=== PATIENT | female | born 1975 | race Caucasian/White ===

== ENCOUNTER 2017-06-25 12:22 | Emergency (ER) | payer BC ==
[2017-06-25 12:43] VITALS: BP 146/99
[2017-06-25] MEDS ORDERED: diphenhydrAMINE 50 MG/ML SDV IVPUSH ONE (12:58)
[2017-06-25] MEDS ORDERED: Sodium Chloride 0.9% 10 ML Syringe FLUSH PRN (12:58)
[2017-06-25] MEDS ORDERED: Metoclopramide 10 MG/2 ML SDV IVPUSH ONE (12:58)
[2017-06-25] MEDS ORDERED: Lactated Ringers 1,000 ML IV ONE (12:59)
--- NOTE | 2017-06-25 13:32 | CT ---
Head CT Technique: Multiple axial sections through the brain were obtained. Intravenous contrast was not utilized. Comparison: Prior head CT exam dated 09/15/14. Findings: Ventricles along with basal cisterns and sulci over convexities are within normal limits for the patient's age. No abnormal parenchymal densities are seen. No evidence of intracranial hemorrhage. No midline shift or mass effect is seen. Bone window settings were reviewed which shows no acute calvarial abnormality. Visualized sinuses are clear. Impression: 1. Nothing acute is identified on noncontrast head CT exam. No significant change is seen from prior study. Diagnostic code #1
--- NOTE | 2017-06-25 13:33 | EDM.PDOC ---
ED HPI GENERAL MEDICAL PROBLEM - General Chief Complaint: Headache Stated Complaint: HEADACHE Time Seen by Provider: 06/25/17 13:23 Source of Information: Reports: Patient History Limitations: Reports: No Limitations - History of Present Illness INITIAL COMMENTS - FREE TEXT/NARRATIVE: 41-year-old female presents for evaluation treatment of a migraine headache. Patient reports that the headache started on Saturday. Reports that it is located behind her eyes and in the back of her head and near her neck. States that she has tried oxycodone, Advil and Tylenol without any symptom relief. She saw the chiropractor yesterday but did not get any relief from seen in the chiropractor. Patient reports that the headache continues to worsen. Reports associated nausea and one episode of vomiting. No fevers, chills, earaches, sinus pain or cough. Report status sore throat 2 days ago. No recent trauma. Patient reports that she has a history of migraine headaches and this always attributed these to her allergies. Treatments SHAKER OUT: Reports: Other (see below) Other Treatments SHAKER OUT: Ibuprofen 800 mg at 0730 Headache Pain Score (Numeric/FACES): 10 - Related Data Allergies Allergy/AdvReac Type Severity Reaction Status Date / Time Penicillins Allergy Rash Verified 06/25/17 12:37 Home Meds: Home Meds . [No Known Home Meds] 06/25/17 [History] oxyCODONE HCl/Acetaminophen [oxyCODONE-Acetaminophen 5-325] 1 tab PO DAILY PRN 06/25/17 [History] Past Medical History Neurological History: Reports: Headaches, Chronic Social & Family History - Tobacco Use Smoking Status *Q: Never Smoker - Alcohol Use Days Per Week of Alcohol Use: 0 - Recreational Drug Use Recreational Drug Use: No ED ROS GENERAL - Review of Systems Review Of Systems: See Below Constitutional: Denies: Fever GI/Abdominal: Reports: Nausea, Vomiting Musculoskeletal: Reports: Neck Pain Neurological: Reports: Headache - Physical Exam Exam: See Below Exam Limited By: No Limitations General Appearance: Alert, WD/WN, No Apparent Distress Eye Exam: Bilateral Eye: PERRL Ears: Normal External Exam, Normal Canal, Hearing Grossly Normal, Normal TMs Nose: Normal Inspection Throat/Mouth: Normal Inspection, Normal Lips, Normal Voice, No Airway Compromise Head Exam: Atraumatic, Normocephalic Neck: Normal Inspection, Full Range of Motion Respiratory/Chest: No Respiratory Distress, Lungs Clear, Normal Breath Sounds Cardiovascular: Normal Peripheral Pulses, Regular Rate, Rhythm, No Murmur GI/Abdominal: Normal Bowel Sounds, Soft, Non-Tender Neuro Exam (Abbreviated): Alert, Oriented, Normal Cognition Psychiatric: Normal Affect, Normal Mood Skin Exam: Warm, Dry, Normal Color Course - Vital Signs Last Recorded V/S: Last Vital Signs Temp 36.6 C 06/25/17 12:38 Pulse 76 06/25/17 12:38 Resp 18 06/25/17 12:38 BP 146/99 H 06/25/17 12:38 Pulse Ox 99 06/25/17 12:38 - Orders/Labs/Meds Orders: Active Orders 24 hr Category Date Time Status Peripheral IV Care [RC] . DIRECTED Care 06/25/17 12:59 Active Sodium Chloride 0.9% [Saline Flush] Med 06/25/17 12:58 Active 10 ml FLUSH ASDIRECTED PRN Peripheral IV Insertion Adult [OM.PC] Routine Oth 06/25/17 12:58 Ordered Medication Orders Sodium Chloride (Saline Flush) 10 ml FLUSH ASDIRECTED PRN PRN Reason: Keep Vein Open Last Admin: 06/25/17 13:19 Dose: 10 ml Labs: Laboratory Tests 06/25/17 06/25/17 Range/Units 13:05 13:05 WBC 9.53 (3.98-10.04) K/mm3 RBC 5.33 H (3.98-5.22) M/mm3 Hgb 15.7 (11.2-15.7) gm/L Hct 46.4 H (34.1-44.9) % MCV 87.1 (79.4-94.8) fl MCH 29.5 (25.6-32.2) pg MCHC 33.8 (32.2-35.5) g/dl RDW Std Deviation 41.0 (36.4-46.3) fL Plt Count 271 (182-369) K/mm3 MPV 9.2 L (9.4-12.3) fl Neut % (Auto) 78.8 H (34.0-71.1) % Lymph % (Auto) 15.9 L (19.3-51.7) % [place] % (Auto) 4.5 L (4.7-12.5) % Eos % (Auto) 0.4 L (0.7-5.8) Baso % (Auto) 0.2 (0.1-1.2) % Neut # (Auto) 7.50 H (1.56-6.13) K/mm3 Lymph # (Auto) 1.52 (1.18-3.74) K/mm3 [place] # (Auto) 0.43 H (0.24-0.36) K/mm3 Eos # (Auto) 0.04 (0.04-0.36) K/mm3 Baso # (Auto) 0.02 (0.01-0.08) K/mm3 Sodium 140 (136-145) mEq/L Potassium 3.8 (3.5-5.1) mEq/L Chloride 101 (98-107) mEq/L Carbon Dioxide 21 (21-32) mEq/L Anion Gap 21.8 H (5-15) BUN 15 (7-18) mg/dL Creatinine 0.8 (0.55-1.02) mg/dL Est Cr Clr Drug Dosing 76.55 mL/min Estimated GFR (MDRD) > 60 (>60) mL/min BUN/Creatinine Ratio 18.8 H (14-18) Glucose 75 (74-106) mg/dL Calcium 9.4 (8.5-10.1) mg/dL Total Bilirubin 0.8 (0.2-1.0) mg/dL AST 18 (15-37) U/L ALT 23 (14-59) U/L Alkaline Phosphatase 67 (46-116) U/L Total Protein 8.2 (6.4-8.2) g/dl Albumin 4.1 (3.4-5.0) g/dl Globulin 4.1 gm/dL Albumin/Globulin Ratio 1.0 (1-2) Meds: Medications Generic Name Dose Route Start Last Admin Trade Name Freq PRN Reason Stop Dose Admin Sodium Chloride 10 ml 06/25/17 12:58 06/25/17 13:19 Saline Flush FLUSH 10 ml ASDIRECTED PRN Administration Keep Vein Open Discontinued Medications Generic Name Dose Route Start Last Admin Trade Name Freq PRN Reason Stop Dose Admin Dexamethasone 4 mg 06/25/17 15:28 06/25/17 15:45 Dexamethasone IVPUSH 06/25/17 15:29 4 mg ONETIME ONE Administration Diphenhydramine HCl 50 mg 06/25/17 12:58 06/25/17 13:20 Benadryl IVPUSH 06/25/17 12:59 50 mg ONETIME ONE Administration Haloperidol Lactate 2.5 mg 06/25/17 14:24 06/25/17 14:36 Haldol IVPUSH 06/25/17 14:25 2.5 mg ONETIME ONE Administration Hydromorphone HCl 0.5 mg 06/25/17 16:31 06/25/17 16:45 Dilaudid IVPUSH 06/25/17 16:32 0.5 mg ONETIME ONE Administration Lactated Ringer's 1,000 mls @ 999 mls/hr 06/25/17 12:59 06/25/17 13:17 Ringers, Lactated IV 06/25/17 13:59 999 mls/hr .BOLUS ONE Administration Ketorolac Tromethamine 30 mg 06/25/17 13:34 06/25/17 13:44 Toradol IVPUSH 06/25/17 13:35 30 mg ONETIME ONE Administration Metoclopramide HCl 10 mg 06/25/17 12:58 06/25/17 13:19 Reglan IVPUSH 06/25/17 12:59 10 mg ONETIME ONE Administration - Radiology Interpretation Free Text/Narrative:: CT of the head with out contrast impression per Dr. Rose: 1. Nothing acute is identified on noncontrast head CT exam. No significant change is seen from prior study. - Re-Assessments/Exams Free Text/Narrative Re-Assessment/Exam: 06/25/17 14:03 Pain currently at an 8/10. Improved slightly with medication. IV haldol 2.5mg ordered. 06/25/17 15:29 Labs returned. Reviewed with the patient. Patient reports pain is currently at 7/10 with rest and return to a 10 out of 10 when she is sitting up. 4 mg IV dexamethasone ordered. Patient is not in any obvious distress at this time. 06/25/17 17:02 Reports that her headache is still a 7 out of 10. 0.5 mg IV Dilaudid ordered. 06/25/17 18:05 Headache resolved. She would like to go home at this time. Discharge instructions as documented. Departure - Departure Time of Disposition: 18:00 Disposition: Home, Self-Care 01 Condition: Good Clinical Impression: Migraine - Discharge Information Instructions: Migraine Headache, [id number] Referrals: Niurka Smith DO [Primary Care Provider] - Forms: ED Department Discharge Additional Instructions: You were given medications in the ER that can affect your ability to drive and operate machinery. Do not drive or operative machinery within 12 hours of useing prescription narcotic pain medication. Rest in a dark quiet room today. make sure you are drinking plenty of fluids. Follow up with your primary care provider within one week for recheck of your headaches and further migraine management. [id number] Tylenol or Motrin as needed for pain relief. - My Orders Last 24 Hours: My Active Orders 06/25/17 12:58 Sodium Chloride 0.9% [Saline Flush] 10 ml FLUSH ASDIRECTED PRN Peripheral IV Insertion Adult [OM.PC] Routine 06/25/17 12:59 Peripheral IV Care [RC] . DIRECTED - Assessment/Plan Last 24 Hours: My Active Orders 06/25/17 12:58 Sodium Chloride 0.9% [Saline Flush] 10 ml FLUSH ASDIRECTED PRN Peripheral IV Insertion Adult [OM.PC] Routine 06/25/17 12:59 Peripheral IV Care [RC] . DIRECTED
[2017-06-25] MEDS ORDERED: Ketorolac 30 MG/ML SDV IVPUSH ONE (13:34)
[2017-06-25] MEDS ORDERED: Haloperidol Lactate 5 MG/ML SDV IVPUSH ONE (14:24)
[2017-06-25] MEDS ORDERED: Dexamethasone 4 MG/ML SDV IVPUSH ONE (15:28)
[2017-06-25] MEDS ORDERED: HYDROmorphone 0.5 MG/0.5 ML Syringe IVPUSH ONE (16:31)
== END 2017-06-25 17:45 | disposition home or self-care (01) ==
LOC: JD.ED 12:22
DX: G43.909 Migraine, unspecified, not intractable, without status migrainosus (principal); Z79.899 Other long term (current) drug therapy; Z88.0 Allergy status to penicillin
CPT/HCPCS: 36415; 70450; 80053; 85025; 96361; 96374; 96375; 99284; J1100; J1170; J1200; J1630; J1885; J2765; J7050; J7120

== ENCOUNTER 2020-03-31 12:51 | Emergency (ER) | payer BC ==
--- NOTE | 2020-03-31 14:29 | EDM.PDOC ---
ED HPI GENERAL MEDICAL PROBLEM - General Chief Complaint: Back Pain or Injury Stated Complaint: BACK PAIN Time Seen by Provider: 03/31/20 13:54 Source of Information: Reports: Patient, RN Notes Reviewed History Limitations: Reports: No Limitations - History of Present Illness INITIAL COMMENTS - FREE TEXT/NARRATIVE: Patient is a 44-year-old female who presents to the ED for evaluation of a back injury. Patient noted that on Saturday, she jumped from her boat onto the wood landing, and landed on both feet. She states that she montse her back at this time. She has been having issues since then with her mid to low back, and down her legs with some numbness and tingling. Patient is also complaining of some numbness and tingling into her bilateral arms. She has had 2 visits at the chiropractor, one on Saturday, and one yesterday, states this does not seem to be helping much. She went to the walk-in clinic earlier today for evaluation, but the doctor wanted her to come to the ER, as she was worried about the numbness and tingling in her arms and legs. That provider did call Dr. Aguilar, and wanted an emergent MRI performed. Patient states that she really was hoping to get some muscle relaxers, something for pain. 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 Patient has been using icy hot and topical patches but no other medications for pain management like Tylenol ibuprofen. Patient denies any other sick-like symptoms, nausea/vomiting/diarrhea, fever/chills, cough/shortness of breath. Treatments MEMBER OF TECHNICAL STAFF: Reports: Other (see below) Other Treatments MEMBER OF TECHNICAL STAFF: topical patches icey hot Generalized Pain Score (Numeric/FACES): 8 - Related Data Allergies Allergy/AdvReac Type Severity Reaction Status Date / Time Penicillins Allergy Rash Verified 06/25/17 12:37 Home Meds: Home Meds Orphenadrine [Norflex] 100 mg PO BID PRN #20 tab 03/31/20 [Rx] predniSONE 20 mg PO ASDIRECTED #15 tab 03/31/20 [Rx] Past Medical History Neurological History: Reports: Headaches, Chronic ED ROS GENERAL - Review of Systems Review Of Systems: Comprehensive ROS is negative, except as noted in HPI. ED EXAM,LOWER BACK PAIN/INJURY - Physical Exam Exam: See Below Exam Limited By: No Limitations General Appearance: Alert, WD/WN, No Apparent Distress Neck: Normal Inspection, Supple, Non-Tender, Full Range of Motion Respiratory/Chest: No Respiratory Distress, Lungs Clear, Normal Breath Sounds, No Accessory Muscle Use, Chest Non-Tender Cardiovascular: Normal Peripheral Pulses, Regular Rate, Rhythm, No Murmur GI/Abdominal: Normal Bowel Sounds, Soft, Non-Tender, No Distention, No Mass Back Exam: Normal Inspection (patient is sitting very straight on the ER cot, muscle stiffness around the spine is noted on exam), Full Range of Motion, Muscle Spasm Extremities: Normal Inspection, Normal Capillary Refill Neurological: Alert, Normal Mood/Affect, Normal Dorsiflexion, CN II-XII Intact (grossly), Normal Plantar Flexion, Normal Reflexes, No Motor/Sensory Deficits Psychiatric: Normal Affect, Normal Mood Skin Exam: Warm, Dry, Intact, Normal Color, No Rash Course - Vital Signs Last Recorded V/S: Last Vital Signs Temp 98.0 F 03/31/20 13:52 Pulse 72 03/31/20 13:52 Resp 20 03/31/20 13:52 BP 141/123 H 03/31/20 13:52 Pulse Ox 99 03/31/20 13:52 - Re-Assessments/Exams Free Text/Narrative Re-Assessment/Exam: 03/31/20 14:38 Patient presents to the ED for evaluation of her back pain. I did go over the fact that this is probably discogenic in nature, however we did not do any imaging at today's visit, patient is requesting some muscle relaxers, and that she like to go home and rest over the weekend. I did go over the fact that if her pain is not much better, or the numbness, she should seek care for a possible MRI. She agrees to do so with her primary care provider, Ysabel Escobar. Have ordered the patient a prescription for Norflex and prednisone. Departure - Departure Time of Disposition: 14:19 Disposition: Home, Self-Care 01 Condition: Good Clinical Impression: Midline low back pain with bilateral sciatica Qualifiers: Chronicity: acute Qualified Code(s): M54.42 - Lumbago with sciatica, left side - Discharge Information *PRESCRIPTION DRUG MONITORING PROGRAM REVIEWED*: No *COPY OF PRESCRIPTION DRUG MONITORING REPORT IN PATIENT SELVIN: No Prescriptions: Orphenadrine [Norflex] 100 mg PO BID PRN #20 tab PRN Reason: Spasms predniSONE 20 mg PO ASDIRECTED #15 tab Instructions: Radicular Pain Referrals: Ysabel Escobar PA-C [Primary Care Provider] - Forms: ED Department Discharge, ED Return to Work/School Form Additional Instructions: ED HPI GENERAL MEDICAL PROBLEM - General Chief Complaint: Back Pain or Injury Stated Complaint: BACK PAIN Time Seen by Provider: 03/31/20 13:54 Source of Information: Reports: Patient, RN Notes Reviewed History Limitations: Reports: No Limitations - History of Present Illness Treatments MEMBER OF TECHNICAL STAFF: Reports: Other (see below) Other Treatments MEMBER OF TECHNICAL STAFF: topical patches icey hot Generalized Pain Score (Numeric/FACES): 8 - Related Data Allergies Allergy/AdvReac Type Severity Reaction Status Date / Time Penicillins Allergy Rash Verified 06/25/17 12:37 Home Meds: Home Meds Orphenadrine [Norflex] 100 mg PO BID PRN #20 tab 03/31/20 [Rx] predniSONE 20 mg PO ASDIRECTED #15 tab 03/31/20 [Rx] Past Medical History Neurological History: Reports: Headaches, Chronic Course - Vital Signs Last Recorded V/S: Last Vital Signs Temp 98.0 F 03/31/20 13:52 Pulse 72 03/31/20 13:52 Resp 20 03/31/20 13:52 BP 141/123 H 03/31/20 13:52 Pulse Ox 99 03/31/20 13:52 Departure - Departure Time of Disposition: 14:19 Disposition: Home, Self-Care 01 Condition: Good Clinical Impression: Midline low back pain with bilateral sciatica Qualifiers: Chronicity: acute Qualified Code(s): M54.42 - Lumbago with sciatica, left side; M54.41 - Lumbago with sciatica, right side - Discharge Information *PRESCRIPTION DRUG MONITORING PROGRAM REVIEWED*: No *COPY OF PRESCRIPTION DRUG MONITORING REPORT IN PATIENT SELVIN: No Prescriptions: Orphenadrine [Norflex] 100 mg PO BID PRN #20 tab PRN Reason: Spasms predniSONE 20 mg PO ASDIRECTED #15 tab Instructions: Radicular Pain Referrals: Ysabel Escobar PA-C [Primary Care Provider] - Sepsis Event Note (ED) - Evaluation Sepsis Screening Result: No Definite Risk - Focused Exam Vital Signs: Vital Signs Temp Pulse Resp BP Pulse Ox 03/31/20 13:52 98.0 F 72 20 141/123 H 99 Care Plan Goals: You were evaluated in the ER today regarding your back injury and mid to lower back pain. Your pain is most likely due to a disc problem within your back, stemming from the injury you sustained on Saturday. You may continue chiropractic treatments if they seem to help. You have been given 2 prescriptions, one for muscle relaxer, and then 1 for a anti-inflammatory called prednisone, please take as directed until gone. If your pain is not much better, by mid next week recommend you follow-up with your primary care provider, Ysabel Escobar, for the possibility of an MRI of your back. Please return to the ER at any time if your symptoms should change or worsen. Sepsis Event Note (ED) - Evaluation Sepsis Screening Result: No Definite Risk - Focused Exam Vital Signs: Vital Signs Temp Pulse Resp BP Pulse Ox 03/31/20 13:52 98.0 F 72 20 141/123 H 99
[2020-03-31 14:51] VITALS: BP 148/92; PULSE 68
== END 2020-03-31 14:47 | disposition home or self-care (01) ==
LOC: JD.ED 12:51
DX: M54.41 Lumbago with sciatica, right side (principal); M54.42 Lumbago with sciatica, left side; Z88.0 Allergy status to penicillin; Z79.899 Other long term (current) drug therapy
CPT/HCPCS: 99283

== ENCOUNTER 2024-10-31 15:36 | Day surgery (SDC) | payer BC, OTHER ==
[2024-10-31] MEDS ORDERED: Naloxone 0.4 MG/ML SDV IVPUSH PRN (16:38)
[2024-10-31 17:02] LABS: BASOPHILS PERCENT AUTO 0.2 % (0.0-1.0); EOSINOPHILS ABSOLUTE AUTO 0.1 K/mm3 (0.0-0.4); EOSINOPHILS PERCENT AUTO 0.4 % (0.0-6.0); HEMATOCRIT 44.9 % (37.0-47.0); HEMOGLOBIN 14.7 gm/dl (12.0-16.0); IMMATURE GRAN ABSOLUTE AUTO 0.05 K/mm3 (0.00-0.05); IMMATURE GRAN PERCENT AUTO 0.4 % (0.0-0.4); LYMPHOCYTES ABSOLUTE AUTO 1.6 K/mm3 (1.0-4.8); MEAN CORPUSCULAR HEMOGLOBIN 27.3 pg (28.0-32.0); MEAN CORPUSCULAR HGB CONC 32.7 g/dl (32.0-36.0); MEAN CORPUSCULAR VOLUME 83.3 fl (83.0-99.0); MEAN PLATELET VOLUME 9.2 fl (9.4-12.3); MONOCYTES ABSOLUTE AUTO 0.9 K/mm3 (0.0-0.8); NEUTROPHILS ABSOLUTE AUTO 10.8 K/mm3 (1.8-7.7); PLATELET COUNT,PLT 238 K/mm3 (150-400); RED BLOOD CELL COUNT 5.39 M/mm3 (4.10-5.30); WHITE BLOOD CELL COUNT,WBC 13.44 K/mm3 (3.9-11.3)
[2024-10-31] MEDS: Lactated Ringers 1,000 ML IV SCH (17:25)
[2024-10-31] MEDS: fentaNYL 100 MCG/2 ML SDV IVPUSH ONE ×2 (17:25→18:37)
[2024-10-31 17:27] LABS: A/G RATIO 0.9 (1-2); ALBUMIN 3.9 g/dl (3.4-5.0); ANION GAP 14.7 (5-15); BILIRUBIN TOTAL 0.8 mg/dL (0.2-1.0); C-REACTIVE PROTEIN 3.48 mg/dL (<0.30); CALCIUM 9.4 mg/dL (8.5-10.1); CREATININE 0.8 mg/dL (0.55-1.02); EST CRCL DRUG DOSING (CG) 70.37 mL/min; POTASSIUM,K 3.7 mEq/L (3.5-5.1); PROTEIN TOTAL,TP 8.4 g/dl (6.4-8.2)
[2024-10-31 17:30] LABS: LACTIC ACID 1.1 mmol/L (0.4-2.0)
[2024-10-31] MEDS: Alum Hydrox/Mag Hydrox/Simeth 30 ML, Lidocaine 2% 15 ML PO ONE (17:41)
[2024-10-31] MEDS: Sodium Chloride 0.9% 10 ML Syringe FLUSH ONE (17:58)
[2024-10-31] MEDS: Iopamidol 612 MG/ML 100 ML Bottle IVPUSH ONE (17:58)
[2024-10-31] MEDS: Sodium Chloride 0.9% 100 ML IV SCH (17:58)
[2024-10-31] MEDS: Levofloxacin/Dextrose 5%-Water 750 MG in Premix Bag 1 BAG IV ONE (18:37)
[2024-10-31] MEDS: metroNIDAZOLE/Normal Saline 500 MG in Premix Bag 1 BAG IV ONE (18:37)
[2024-10-31] MEDS ORDERED: Propofol 200 MG/20 ML SDV ONE ×4 (18:41)
[2024-10-31] MEDS ORDERED: fentaNYL 250 MCG/5 ML SDV ONE (18:42)
[2024-10-31] MEDS ORDERED: Midazolam 1 MG/ML 2 ML SDV ONE (18:42)
[2024-10-31] MEDS ORDERED: Sugammadex Sodium 200 MG/2 ML VIAL IV ONE ×2 (18:47→19:49)
[2024-10-31] MEDS ORDERED: Dexamethasone 4 MG/ML 5 ML MDV ONE (18:47)
[2024-10-31] MEDS ORDERED: Glycopyrrolate 0.2 MG/ML 2 ML SDV ONE (18:47)
[2024-10-31] MEDS ORDERED: Lidocaine 1% 5 ML VIAL ONE (18:47)
[2024-10-31] MEDS ORDERED: Ondansetron 4 MG/2 ML SDV ONE (18:47)
[2024-10-31] MEDS ORDERED: Rocuronium 50 MG/5 ML Vial ONE (18:47)
[2024-10-31] MEDS ORDERED: Ketorolac 30 MG/ML SDV ONE (18:47)
[2024-10-31] MEDS ORDERED: Esmolol 100 MG/10 ML SDV ONE (19:07)
[2024-10-31] MEDS ORDERED: Phenylephrine 1% 10 MG/ML SDV ONE (19:26)
[2024-10-31] MEDS ORDERED: Sodium Chloride 0.9% 100 ML ONE (19:27)
[2024-10-31] MEDS ORDERED: EPINEPHrine 1 MG/ML SDV ONE (19:48)
[2024-10-31] MEDS ORDERED: Bupivacaine 0.5% 30 ML SDV ONE (19:48)
[2024-10-31] MEDS ORDERED: Metoprolol Tartrate 5 MG/5 ML SDV ONE (19:57)
[2024-10-31] MEDS ORDERED: HYDROmorphone 0.5 MG/0.5 ML Syringe IVPUSH PRN (20:07)
[2024-10-31] MEDS ORDERED: Ondansetron 4 MG/2 ML SDV IVPUSH PRN (20:07)
[2024-10-31] MEDS ORDERED: fentaNYL 100 MCG/2 ML SDV IVPUSH PRN (20:07)
[2024-10-31] MEDS ORDERED: Sodium Chloride 0.9% 10 ML Syringe FLUSH PRN (20:07)
[2024-10-31 20:09] LABS: APPEARANCE,URINE CLEAR (Clear); BILIRUBIN,URINE NEGATIVE (Negative); COLOR,URINE LIGHT YELLOW (Yellow); GLUCOSE,URINE NEGATIVE (Negative); KETONES,URINE NEGATIVE (Negative); LEUKOCYTE ESTERASE,URINE TRACE (Negative); NITRITE,URINE NEGATIVE (Negative); OCCULT BLOOD,URINE NEGATIVE (Negative); PROTEIN,URINE NEGATIVE (Negative); UROBILINOGEN,URINE 0.2 (0.2-1.0)
[2024-10-31] MEDS ORDERED: diphenhydrAMINE 50 MG/ML SDV IVPUSH ONE (20:11)
[2024-10-31] MEDS ORDERED: Lactated Ringers 1,000 ML IV SCH (20:15)
[2024-10-31 20:22] LABS: BACTERIA,URINE MODERATE /hpf (FEW); MUCUS,URINE FEW /hpf (FEW); RBC,URINE 0-5 /hpf (0-5)
[2024-10-31] MEDS ORDERED: Sodium Chloride 0.9% 10 ML Syringe FLUSH SCH (21:00)
[2024-10-31 23:46] VITALS: BP 128/80; PULSE 87
== END 2024-10-31 22:40 | disposition home or self-care (01) ==
LOC: JD.ED 15:36 → JD.SDS 19:30
PROVIDERS: ATTEND Surgery
DX: K35.30 Acute appendicitis with localized peritonitis, without perforation or gangrene (principal); I10 Essential (primary) hypertension; K21.9 Gastro-esophageal reflux disease without esophagitis; Z88.0 Allergy status to penicillin; Z79.899 Other long term (current) drug therapy
CPT/HCPCS: 36415; 44970; 74177; 80053; 81001; 81025; 83605; 83690; 85025; 86140; 87086; 96361; 96365; 96366; 96368; 96375; 96376; 99285; A9270; J0171; J0665; J1100; J1836; J1956; J2003; J2250; J2371; J2405; J2704; J3010; J3490; J7120; Q9967; 00840; J1596; J1885